=== PATIENT | female | born 1970 | race Caucasian/White ===

== ENCOUNTER 2019-11-01 12:15 | Outpatient (CLI) | payer OTHER | END 2019-11-01 23:59 | disposition home or self-care (01) | LOC: CFH 12:15 | PROVIDERS: ATTEND Obstetrics & Gynecology | DX: N60.01 Solitary cyst of right breast (principal); R92.2 Inconclusive mammogram | CPT/HCPCS: 76642; 77065; G0279 ==

== ENCOUNTER → 2020-09-30 | Outpatient (CLI) | payer OTHER | END | disposition home or self-care (01) | LOC: CFH 08:26 | PROVIDERS: ATTEND Family Medicine Adult Medicine | DX: Z12.31 Encounter for screening mammogram for malignant neoplasm of breast (principal) | CPT/HCPCS: 77063; 77067 ==